=== PATIENT | female | born 1960 | race Caucasian/White ===

== ENCOUNTER 2024-01-04 09:45 | Inpatient (IN) | payer BC ==
[~2024-01-04] VITALS: Ht 152.4 cm; Wt 99.5 kg
[2024-01-04] MEDS ORDERED: ASPIRIN 81 MG/TAB PO ONE (10:10)
[2024-01-04 10:29] LABS: ALKALINE PHOSPHATASE 108 u/l (38-126); ANION GAP 10 (6-22 (CALC)); BILIRUBIN, TOTAL 0.7 mg/dL (0.02-1.3); BUN 17 mg/dL (8-23); BUN/CREATININE RATIO 23 (12-20 (CALC)); CALCULATED LDLCHOLESTEROL 118 mg/dL (62-129 (CALC)); CARBON DIOXIDE 23 mmol/l (22-30); CHLORIDE 108 mmol/l (95-108); CHOLESTEROL HDL RATIO 4.5 (<4.4 (CALC)); CREATININE 0.7 mg/dL (0.5-1.0); ESTIMATED GFR 96 ML/MIN (>=90 (CALC)); HDL CHOLESTEROL 48 mg/dL (39.0-59.0); POTASSIUM 4.3 mmol/l (3.5-5.1); SGOT/AST 27 u/l (9-36); SODIUM 136 mmol/l (137-146); TOTAL CHOLESTEROL 218 mg/dl (0-199); TOTAL PROTEIN 7.2 g/dL (6.3-8.2); TOTAL TRIGLYCERIDES 261 mg/dl (0-149); VLDL CHOLESTROL 52 mg/dl (1-41 (CALC))
[2024-01-04 10:32] LABS: BASO% 0.7 % (0-3); EOS% 1.3 % (0-8); HEMATOCRIT 40.6 % (37.0-47.0); IMMATURE GRANULOCYTES 0.6 % (0.0-5.0); LYMPH% 23.4 % (15-41); MEAN CELL VOLUME 87.1 fL CALC (80.0-100.0); MEAN CORPUSCULAR HGB CONC 34.5 g/dL CAL (32.0-36.0); MONO% 5.5 % (2-13); NEUT# 3.72 thou/uL (2.00-7.15); NEUT% 68.5 % (42-76); RED BLOOD COUNT 4.66 mill/uL (4.20-5.60); RED CELL DISTRI WIDTH 12.3 % (11.5-15.5)
[2024-01-04 10:39] LABS: PROTHROMBIN TIME 9.2 SECONDS (9.0-12.5)
[2024-01-04 11:15] LABS: URINE BILIRUBIN - DIPSTICK Negative (NEGATIVE); URINE BLOOD DIPSTICK Trace-intact (NEGATIVE); URINE GLUCOSE - DIPSTICK >=1000 mg/dL (NEGATIVE); URINE KETONE Negative (NEGATIVE); URINE LEUK ESTERASE Negative (NEGATIVE); URINE NITRITE - DIPSTICK Negative (Negative); URINE PH 5.5 (4.5-8.0); URINE PROTEIN - DIPSTICK Negative (NEG-TRACE); URINE UROBILINOGEN - DIPSTICK 0.2 E.U./dL (0.2)
[2024-01-04 11:18] LABS: URINE COLOR Yellow
[2024-01-04] MEDS ORDERED: DEXTROSE 250 ML IV PRN (12:00)
[2024-01-04] MEDS ORDERED: ACETAMINOPHEN 325 MG/TAB PO PRN (12:00)
[2024-01-04] MEDS ORDERED: MAGNESIUM HYDROXIDE 30 ML UDC PO PRN (12:00)
[2024-01-04] MEDS ORDERED: INSULIN LISPRO 100 UNITS/ML ML SC SCH (17:00)
[2024-01-04 19:00] VITALS: BP 121/54
[2024-01-04 20:00] VITALS: BP 131/64
[2024-01-04 21:00] VITALS: BP 164/78
[2024-01-04] MEDS ORDERED: ATORVASTATIN CALCIUM 40 MG/TAB PO SCH (21:00)
[2024-01-04] MEDS ORDERED: ENOXAPARIN SODIUM 40 MG/0.4 ML SYR SC SCH (21:00)
[2024-01-04 22:00] VITALS: BP 163/86
[2024-01-04 23:00] VITALS: BP 148/84
[2024-01-05] VITALS (22 sets, daily range): BP systolic 110–153; BP diastolic 59–80
[2024-01-05 06:22] LABS: HEMATOCRIT 38.6 % (37.0-47.0); HEMOGLOBIN 13.3 g/dl (12.0-16.0); MEAN CELL VOLUME 87.7 fL CALC (80.0-100.0); MEAN CORPUSCULAR HGB 30.2 pG CALC (26.0-32.0); MEAN CORPUSCULAR HGB CONC 34.5 g/dL CAL (32.0-36.0); RED BLOOD COUNT 4.4 mill/uL (4.20-5.60); RED CELL DISTRI WIDTH 12.3 % (11.5-15.5)
[2024-01-05 06:36] LABS: ALBUMIN 3.7 g/dL (3.2-5.0); BILIRUBIN, TOTAL 0.9 mg/dL (0.02-1.3); CREATININE 0.7 mg/dL (0.5-1.0); POTASSIUM 4.3 mmol/l (3.5-5.1); TOTAL PROTEIN 6.6 g/dL (6.3-8.2)
[2024-01-05 06:52] LABS: MAGNESIUM 1.8 mg/dL (1.6-2.3)
[2024-01-05] MEDS ORDERED: LORazepam 2 MG/ML IV PRN (08:20)
[2024-01-05] MEDS ORDERED: PANTOPRAZOLE SODIUM Sesquihydr 40 MG/TAB PO SCH (09:00)
[2024-01-05] MEDS ORDERED: ASPIRIN 325 MG/TAB PO SCH (09:00)
[2024-01-05] MEDS ORDERED: DEXTROSE 250 ML IV PRN (20:10)
[2024-01-05] MEDS ORDERED: INSULIN DETEMIR 100 UNITS/ML SC SCH (21:00)
[2024-01-06] VITALS (21 sets, daily range): BP systolic 112–145; BP diastolic 56–83
[2024-01-06 04:56] LABS: HEMOGLOBIN 13.7 g/dl (12.0-16.0); MEAN CELL VOLUME 89.3 fL CALC (80.0-100.0); MEAN CORPUSCULAR HGB 29.8 pG CALC (26.0-32.0); MEAN CORPUSCULAR HGB CONC 33.4 g/dL CAL (32.0-36.0); RED BLOOD COUNT 4.59 mill/uL (4.20-5.60); RED CELL DISTRI WIDTH 12.6 % (11.5-15.5)
[2024-01-06 05:07] LABS: ALBUMIN 3.6 g/dL (3.2-5.0); BILIRUBIN, TOTAL 1.1 mg/dL (0.02-1.3); CREATININE 0.8 mg/dL (0.5-1.0); MAGNESIUM 1.7 mg/dL (1.6-2.3); TOTAL PROTEIN 6.3 g/dL (6.3-8.2)
[2024-01-07] VITALS (16 sets, daily range): BP systolic 106–134; BP diastolic 50–85
[2024-01-07 08:14] LABS: HEMATOCRIT 44.3 % (37.0-47.0); HEMOGLOBIN 15.1 g/dl (12.0-16.0); MEAN CELL VOLUME 87.5 fL CALC (80.0-100.0); MEAN CORPUSCULAR HGB 29.8 pG CALC (26.0-32.0); MEAN CORPUSCULAR HGB CONC 34.1 g/dL CAL (32.0-36.0); RED BLOOD COUNT 5.06 mill/uL (4.20-5.60); RED CELL DISTRI WIDTH 12.3 % (11.5-15.5)
[2024-01-07 08:26] LABS: BILIRUBIN, TOTAL 1.4 mg/dL (0.02-1.3); CREATININE 0.8 mg/dL (0.5-1.0); POTASSIUM 4.3 mmol/l (3.5-5.1); TOTAL PROTEIN 7.1 g/dL (6.3-8.2)
[2024-01-07] MEDS ORDERED: INSULIN DETEMIR 100 UNITS/ML SC SCH (21:00)
[2024-01-08] VITALS (9 sets, daily range): BP systolic 105–126; BP diastolic 53–65
[2024-01-08] MEDS ORDERED: INSULIN DETEMIR 100 UNITS/ML SC SCH (21:00)
[2024-01-09] VITALS (10 sets, daily range): BP systolic 119–130; BP diastolic 56–83
[2024-01-09] MEDS ORDERED: DEXTROSE 250 ML IV PRN (08:50)
[2024-01-09] MEDS ORDERED: INSULIN LISPRO 100 UNITS/ML ML SC SCH (11:00)
[2024-01-09] MEDS ORDERED: ASPIRIN 81 LOW81 MG PO (16:01)
[2024-01-09] MEDS ORDERED: LEVEMIR100 UNIT SC (16:02)
[2024-01-09] MEDS ORDERED: LIPITOR80 M1 PO (16:02)
[2024-01-09] MEDS ORDERED: METFORMIN HCL1000 MG PO (16:03)
== END 2024-01-09 17:00 | DRG 65 ==
LOC: ED 09:45 → ED-I 10:12 → ED 10:12 → ED-I 11:39 → ED 11:57 → ICU 11:58
PROVIDERS: Family Medicine; ADMIT Internal Medicine; ATTEND Internal Medicine
DX: I63.512 Cerebral infarction due to unspecified occlusion or stenosis of left middle cerebral artery (principal); G81.91 Hemiplegia, unspecified affecting right dominant side; R29.810 Facial weakness; R47.01 Aphasia; R29.711 NIHSS score 11; I10 Essential (primary) hypertension; E11.65 Type 2 diabetes mellitus with hyperglycemia; E11.69 Type 2 diabetes mellitus with other specified complication; E78.5 Hyperlipidemia, unspecified; J45.909 Unspecified asthma, uncomplicated; F41.9 Anxiety disorder, unspecified; F17.290 Nicotine dependence, other tobacco product, uncomplicated
CPT/HCPCS: J1650; Q9967